=== PATIENT | male | born 1985 | race African-American/Black ===

== ENCOUNTER 2024-08-06 10:55 | Emergency (ER) | payer MEDICAID, OTHER ==
[~2024-08-06] VITALS: Ht 180.3 cm; Wt 81.6 kg
[2024-08-06 10:59] VITALS: O2SAT 100
[2024-08-06] MEDS: ACETAMINOPHEN 325MG TABLET PO ONE (13:30)
[2024-08-06] MEDS: KETOROLAC 30MG/ML VIAL IM ONE (13:30)
[2024-08-06 14:00] LABS: CHLORIDE 105 mEq/L (98-107); POTASSIUM 3.3 mEq/L (3.5-5.1); SODIUM 138 mEq/L (136-145)
[2024-08-06 14:01] LABS: CARBON DIOXIDE 27 mEq/L (21-32)
[2024-08-06 14:02] LABS: CALCIUM 9.6 mg/dL (8.7-10.4)
[2024-08-06 14:04] LABS: HEMATOCRIT. 40.1 % (42.0-52.0); HEMOGLOBIN. 12.9 g/dL (14.0-18.0); MEAN CORPUSCULAR HEMOGLOBIN 28.9 pg (28.0-32.0); MEAN CORPUSCULAR HGB CONC 32.3 g/dL (31.0-37.0); MEAN CORPUSCULAR VOLUME 89.6 fL (80.0-94.0); MEAN PLATELET VOLUME 10.5 fl (7.4-10.4); PLATELET 220 x1000/uL (130-400); RED BLOOD CELL COUNT 4.48 mill/uL (4.7-6.1); RED CELL DISTRIBUTION WIDTH 12.2 % (11.6-14.6); WHITE BLOOD COUNT 24.1 x1000/uL (4.5-11.0)
[2024-08-06 14:06] LABS: CREATININE 0.8 mg/dL (0.6-1.3); GLUCOSE 95 mg/dL (70-105)
[2024-08-06 14:07] LABS: UREA NITROGEN BLOOD 11 mg/dL (9-23)
[2024-08-06 14:11] LABS: DIFFERENTIAL COMMENT 1
[2024-08-06 15:07] LABS: PLATELET ESTIMATE NORMAL
[2024-08-06] MEDS ORDERED: KETO10TA2 MT (16:17)
[2024-08-06] MEDS ORDERED: AMOX1TAB16 MT (16:17)
[2024-08-06 16:38] VITALS: BP 128/87; PULSE 80; RESP 18; TEMP 37.4; O2SAT 100
[2024-08-06] MEDS ORDERED: IOHEXOL-300 100 ML BOTTLE ONE (23:05)
== END 2024-08-06 16:40 | disposition home or self-care (01) ==
LOC: ER 10:55
DX: J36 Peritonsillar abscess (principal)
CPT/HCPCS: 99285; 70491; 80048; 85025; 36415; 96372; J1885; Q9967